=== PATIENT | male | born 2000 | race Caucasian/White ===

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

== ENCOUNTER 2018-01-27 15:58 | Emergency (ER) | payer OTHER ==
[2018-01-27 16:10] VITALS: BP 132/82
--- NOTE | 2018-01-27 16:15 | UC ---
General HPI - HPI Summary HPI Summary: pt is for over a week.c/o worsening sinus pain, pressure and congestion with post nasal drip and a sore throat - History of Current Complaint Chief Complaint: UCGeneralIllness Stated Complaint: HEAD CONGESTION/SORE THROAT Time Seen by Provider: 01/27/18 16:08 Hx Obtained From: Family/Director Of Diagnostic Imaging Onset/Duration: Gradual Onset Timing: Constant Pain Intensity: 4 Associated Signs & Symptoms: Positive: Other - no allergies. Negative: Fever - Allergy/Home Medications Allergies/Adverse Reactions: Allergies Allergy/AdvReac Type Severity Reaction Status Date / Time azithromycin Allergy Rash Verified 12/04/17 09:30 clarithromycin [From Biaxin] Allergy Rash Verified 12/04/17 09:30 ibuprofen Allergy See Comment Verified 01/08/18 08:50 pollen extracts Allergy Sneezing Verified 12/04/17 09:30 prev pack Allergy Mild Vomiting Uncoded 11/07/16 14:25 PMH/Surg Hx/FS Hx/Imm Hx - Additional Past Medical History Additional PMH: ADHD Cardiovascular History: Hypertension GI/ History: Gastroesophageal Reflux Psychological History: Anxiety Other History Of: Negative For: Anticoagulant Therapy - Surgical History Surgical History: Yes Surgery Procedure, Year, and Place: TONSILLECTOMY AND ADENOICECTOMY-[place]; ear tubes bilat,skull zoya from injury; Left Knee surgery 2013 - Family History Known Family History: Positive: Unknown, Cardiac Disease, Hypertension, Diabetes , Other - cancer in many relative. - Social History Occupation: Employed Full-time Alcohol Use: None Substance Use Type: None Smoking Status (MU): Never Smoked Tobacco Household Exposure Type: Cigarettes - Immunization History Vaccination Up to Date: Yes Review of Systems Constitutional: Negative Skin: Negative Eyes: Negative ENT: Sore Throat, Nasal Discharge, Sinus Congestion, Sinus Pain/Tenderness Respiratory: Negative Cardiovascular: Negative Gastrointestinal: Negative Genitourinary: Negative Motor: Negative Neurovascular: Negative Musculoskeletal: Negative Neurological: Negative Psychological: Negative Is Patient Immunocompromised?: No All Other Systems Reviewed And Are Negative: Yes Physical Exam Triage Information Reviewed: Yes Appearance: Well-Appearing Vital Signs: Initial Vital Signs Temp 97.6 F 01/27/18 16:05 Pulse 98 01/27/18 16:05 Resp 18 01/27/18 16:05 BP 132/82 01/27/18 16:05 Pulse Ox 99 01/27/18 16:05 Vital Signs Reviewed: Yes Eyes: Positive: Conjunctiva Clear ENT: Positive: Pharynx normal, Nasal congestion, TMs normal, Sinus tenderness. Negative: Nasal drainage Neck: Positive: Supple, Nontender, No Lymphadenopathy Respiratory: Positive: Lungs clear, Normal breath sounds Cardiovascular: Positive: RRR, No Murmur Abdomen Description: Positive: Nontender, No Organomegaly, Soft Bowel Sounds: Positive: Present Musculoskeletal: Positive: ROM Intact Neurological: Positive: Alert Psychological: Positive: Age Appropriate Behavior Skin Exam: Normal Course/Dx - Differential Dx - Multi-Symptom Provider Diagnoses: sinusitis Discharge - Sign-Out/Discharge Documenting (check all that apply): Patient Departure - Discharge Plan Condition: Stable Disposition: HOME Prescriptions: Amoxicillin/Clavulanate TAB* [Augmentin TAB 875*] 875 mg PO BID #20 tab Patient Education Materials: Sinusitis (ED) Forms: *Work Release Referrals: Chris SIERRA,Greg Atkinson [Primary Care Provider] - 7 Days - Billing Disposition and Condition Condition: STABLE Disposition: Home
== END 2018-01-27 16:24 | disposition home or self-care (01) ==
LOC: UCCORT 15:58
DX: J32.9 Chronic sinusitis, unspecified (principal); I10 Essential (primary) hypertension; K21.9 Gastro-esophageal reflux disease without esophagitis; F90.9 Attention-deficit hyperactivity disorder, unspecified type; F41.9 Anxiety disorder, unspecified; Z88.6 Allergy status to analgesic agent; Z88.1 Allergy status to other antibiotic agents; Z82.49 Family history of ischemic heart disease and other diseases of the circulatory system; Z83.3 Family history of diabetes mellitus; Z80.9 Family history of malignant neoplasm, unspecified
CPT/HCPCS: 99212; G0463

== ENCOUNTER 2018-04-30 08:01 | Emergency (ER) | payer OTHER ==
--- NOTE | 2018-04-30 08:27 | ED ---
Nausea/Vomiting/Diarrhea HPI - HPI Summary HPI Summary: nausea, diarrhea last 24 hours, several bowel movements at home, without blood, without vomiting. did not check temperature at home. Mother also having diarrhea - History of Current Complaint Chief Complaint: UCGeneralIllness Stated Complaint: NAUGSEA Time Seen by Provider: 04/30/18 08:14 Onset/Duration: Sudden Onset Severity Initially: Mild Severity Currently: Mild Pain Intensity: 0 Location: Diffuse Character: Cramping Aggravating Factor(s): Food Alleviating Factor(s): Bowel Movement Nausea/Vomiting Presence: Nauseated Nausea/Vomiting Duration: 0-12 hours Diarrhea Characteristics: Watery - Risk Factors Influenza Risk Factors: Negative Surgical Obstruction Risk Factor(s): Negative - Allergies/Home Medications Allergies/Adverse Reactions: Allergies Allergy/AdvReac Type Severity Reaction Status Date / Time azithromycin Allergy Rash Verified 04/30/18 08:08 clarithromycin [From Biaxin] Allergy Rash Verified 04/30/18 08:08 ibuprofen Allergy See Comment Verified 04/30/18 08:08 pollen extracts Allergy Sneezing Verified 04/30/18 08:08 prev pack Allergy Mild Vomiting Uncoded 04/30/18 08:08 PMH/Surg Hx/FS Hx/Imm Hx Previously Healthy: Yes Endocrine/Hematology History: Denies: Hx Anticoagulant Therapy, Hx Diabetes, Hx Thyroid Disease Cardiovascular History: Reports: Hx Hypertension Denies: Hx Pacemaker/ICD Respiratory History: Reports: Hx Asthma, Other Respiratory Problems/Disorders - Tonsillectomy, adenoids removed tubes in ears Denies: Hx Chronic Obstructive Pulmonary Disease (COPD) GI History: Denies: Hx Ulcer, Other GI Disorders History: Denies: Hx Renal Disease Sensory History: Reports: Hx Contacts or Glasses - WEARS GLASSES Denies: Hx Hearing Aid Opthamlomology History: Reports: Hx Contacts or Glasses - WEARS GLASSES Neurological History: Reports: Other Neuro Impairments/Disorders - Head trauma x 4 yrs, 19 zoya in scalp top of head Denies: Hx Dementia, Hx Seizures Psychiatric History: Reports: Hx Anxiety - ON [place], Hx Depression, Hx Panic Disorder - anxiety,lomzilipram(?) Denies: Hx Substance Abuse - Surgical History Surgery Procedure, Year, and Place: TONSILLECTOMY AND [place]ENOICECTOMY[place]; ear tubes bilat,skull zoya from injury; Left Knee surgery 2014 Hx Anesthesia Reactions: No Infectious Disease History: No Infectious Disease History: Denies: Hx Hepatitis, Hx Human Immunodeficiency Virus (HIV), Traveled Outside the [place] in Last 30 Days - Family History Known Family History: Positive: Unknown, Cardiac Disease, Hypertension, Diabetes , Other - cancer in many relative. - Social History Alcohol Use: None Substance Use Type: Reports: None Smoking Status (MU): Never Smoked Tobacco Review of Systems Constitutional: Negative Eyes: Negative ENT: Negative Cardiovascular: Negative Respiratory: Negative Positive: Diarrhea, Nausea Genitourinary: Negative Musculoskeletal: Negative Skin: Negative Neurological: Negative All Other Systems Reviewed And Are Negative: Yes Physical Exam Triage Information Reviewed: Yes Vital Signs On Initial Exam: Initial Vitals Temp Pulse Resp BP Pulse Ox 36.6 C 90 20 146/84 96 04/30/18 08:11 04/30/18 08:11 04/30/18 08:11 04/30/18 08:11 04/30/18 08:11 Vital Signs Reviewed: Yes Appearance: Positive: Ill-Appearing, Obese Skin: Positive: Warm, Dry, Other - seborrheic dermatitis Head/Face: Positive: Normal Head/Face Inspection Eyes: Positive: Normal ENT: Positive: Normal ENT inspection Neck: Positive: Supple Respiratory/Lung Sounds: Positive: Clear to Auscultation Cardiovascular: Positive: Normal Abdomen Description: Positive: Nontender Bowel Sounds: Positive: Present Diagnostics - Vital Signs Vital Signs Temp Pulse Resp BP Pulse Ox 04/30/18 08:11 36.6 C 90 20 146/84 96 - Laboratory Lab Statement: Any lab studies that have been ordered have been reviewed, and results considered in the medical decision making process. Naus/Vom/Diarrhea Course/Dx - Differential Dx/Diagnosis Provider Diagnoses: gastroenteritis Discharge - Sign-Out/Discharge Documenting (check all that apply): Patient Departure All imaging exams completed and their final reports reviewed: Yes - Discharge Plan Condition: Good Disposition: HOME Patient Education Materials: Gastroenteritis (DC) Referrals: Chris SIERRA,Greg Atkinson [Primary Care Provider] - Additional Instructions: clear liquid diet, wash hands well to avoid transmission of possibly infectious diarrhea, jello juice, broth , soda, until diarrhea resolves - Billing Disposition and Condition Condition: GOOD Disposition: Home
[2018-04-30 08:42] VITALS: BP 137/66
[2018-04-30 10:40] LABS: ABS Basophils 0 10^3/ul (0-0.2); ABS Eosinophils 0.1 10^3/ul (0-0.6); ABS Lymphocytes 1.7 10^3/ul (1.0-4.8); ABS Monocytes 0.4 10^3/ul (0-0.8); ABS Neutrophils 4.9 10^3/ul (1.5-7.7); ABS Nucleated RBC 0.1 10^3/ul; Hematocrit 44 % (42-52); Hemoglobin 15.2 g/dl (14.0-18.0); Mean Corpuscular HGB Conc 35 g/dl (31-36); Mean Corpuscular Hemoglobin 28 pg (27-31); Mean Corpuscular Volume 82 fL (80-94); Mean Platelet Volume 8.5 um3 (7.4-10.4); Nucleated Red Blood Cells % 0.9; Platelet Count 290 10^3/ul (150-450); Red Blood Count 5.39 10^6/ul (4.00-5.40); Red Cell Distribution Width 14 % (10.5-15); White Blood Count 7.1 10^3/ul (3.5-10.8)
== END 2018-04-30 08:51 | disposition home or self-care (01) ==
LOC: UCEAST 08:01
DX: K52.9 Noninfective gastroenteritis and colitis, unspecified (principal); F41.9 Anxiety disorder, unspecified; Z88.6 Allergy status to analgesic agent; Z88.1 Allergy status to other antibiotic agents
CPT/HCPCS: 36415; 80053; 83036; 85025; 99212; G0463

== ENCOUNTER 2019-01-18 08:01 | Emergency (ER) | payer OTHER ==
[2019-01-18 08:12] VITALS: BP 165/85
--- NOTE | 2019-01-18 08:12 | UC ---
Nausea/Vomiting/Diarrhea HPI - HPI Summary HPI Summary: 18 y/o male presents to the urgent care c/o diarrhea, N/V for the past 4 days. Pt reports diarrhea started first w/ 3 episodes daily and w/o any abdominal pain. The next day he developed N/V w/ 1-2 episodes daily. He doesn't recall eating outside and no recent travel. He has been drinking fluids and his appetite hasn't decrease. He also c/o lf left ear pain for the past 2 days w/ also some insect bites in both arms. Pt felt chills last night, but took his temp and was 99.1F. He has taken Tylenol PO to alleviate ear pain. Pt denies fever, ARCHULETA, dizziness, SOB, cough, chest pain, abdominal pain, blood in the stool or vomit, urinary symptoms, or Hx of STD's - History of Current Complaint Stated Complaint: NAUSEA,DIARRHEA Time Seen by Provider: 01/18/19 08:08 Hx Obtained From: Patient Onset/Duration: Gradual Onset, Lasting Days - 4 days, Still Present Timing: Intermittent Episodes Lasting: Severity Initially: Mild Severity Currently: Mild Pain Intensity: 4 - left ear pain Pain Scale Used: 0-10 Numeric Location: Other - No abdominal pain Character: Not Applicable Aggravating Factor(s): Nothing Alleviating Factor(s): OTC Analgesics Vomiting Frequency: Daily - 1-2 episodes daily Nausea/Vomiting Duration: 2-3 days Vomiting Characteristics: Nonbilious Diarrhea Presence: Yes Diarrhea Frequency: Daily - 3 episodes everyday Diarrhea Characteristics: Watery - Risk Factors Influenza Risk Factors: Negative - Allergies/Home Medications Allergies/Adverse Reactions: Allergies Allergy/AdvReac Type Severity Reaction Status Date / Time azithromycin Allergy Rash Verified 04/30/18 08:08 clarithromycin [From Biaxin] Allergy Rash Verified 04/30/18 08:08 ibuprofen Allergy See Comment Verified 04/30/18 08:08 pollen extracts Allergy Sneezing Verified 04/30/18 08:08 prev pack Allergy Mild Vomiting Uncoded 04/30/18 08:08 PMH/Surg Hx/FS Hx/Imm Hx Previously Healthy: Yes Respiratory History: Asthma GI/ History: Gastroesophageal Reflux Psychological History: Depression Other Psychological History: ADHD Other History Of: Negative For: Anticoagulant Therapy - Surgical History Surgical History: Yes Surgery Procedure, Year, and Place: TONSILLECTOMY AND [place]ICECTOMY[place]; ear tubes bilat,skull zoya from injury; Left Knee surgery 2014 - Family History Known Family History: Positive: Cardiac Disease, Hypertension, Diabetes, Other - cancer in many relative. - Social History Occupation: Employed Full-time Lives: With Family Alcohol Use: None Substance Use Type: None Smoking Status (MU): Never Smoked Tobacco Household Exposure Type: Cigarettes - Immunization History Vaccination Up to Date: Yes Review of Systems All Other Systems Reviewed And Are Negative: Yes Constitutional: Positive: Negative Skin: Positive: Rash - insect bites in B/L arms Eyes: Positive: Negative ENT: Positive: Ear Ache - left ear pain Respiratory: Positive: Negative Cardiovascular: Positive: Negative Gastrointestinal: Positive: Vomiting - 2-3 epidosdes every day x 3 days, Diarrhea - 3 episodes every day x 4 days, Nausea Genitourinary: Positive: Negative Motor: Positive: Negative Neurovascular: Positive: Negative Musculoskeletal: Positive: Negative Neurological: Positive: Negative Psychological: Positive: Negative Is Patient Immunocompromised?: No Physical Exam - Summary Physical Exam Summary: Vital Signs Reviewed: Yes General:Patient is a well developed and nourished male who is sitting comfortable in the examining table. Patient is not in any acute respiratory distress. Eyes: Positive: Conjunctiva Clear - PERRLA, EOMI, fundi grossly normal ENT: Positive: Normal ENT inspection, Hearing grossly normal, Left esteranl ear canal w/ erythema and yellowish draiange, LF TM injected w/ erythema. RT external ear canal and TM: WNL. Pharynx normal, Neck: Positive: Supple, Nontender, No Lymphadenopathy Respiratory: Positive: Chest non-tender, Lungs clear, Normal breath sounds, No respiratory distress Cardiovascular: Positive: RRR,S1 and S2 present, No Murmur, Pulses Normal, Brisk Capillary Refill Abdomen Description: Positive: Nontender, Other: - Abd: Flat with no distention. No surface trauma, scars, incisions. hyperactive bowel sounds present in all four quadrants. No tenderness, guarding, rigidity to palpation. No masses palpated, no pulsation in epigastric area. No organomegaly. Negative [place] signs. No periumbilical tenderness. No rebound in the lower quadrants. NT over [place]neys point. Good femoral pulses bilaterally. No hernia noted. No CVAT bilaterally Musculoskeletal: Positive: Strength Intact, ROM Intact, No Edema,FROM in all major joints, no edema, no cyanosis or clubbing. Neuro: Alert and oriented x 3. No acute neurological deficits. Speech is normal. Psychological: WNL Skin: Dry and warm, B/L arms a/ scattered erythematous papules, some w/ yellowish crusting and signs of excoriation, mild tenderness on palpation, no swelling observed. Triage Information Reviewed: Yes Vital Signs: Initial Vital Signs Temp 98.6 F 01/18/19 08:09 Pulse 110 01/18/19 08:09 Resp 17 01/18/19 08:09 BP 165/85 01/18/19 08:09 Pulse Ox 98 01/18/19 08:09 Naus/Vom/Diarrhea Course/Dx - Course Course Of Treatment: 18 y/o male presents to the urgent care c/o diarrhea, N/V for the past 4 days. Pt reports diarrhea started first w/ 3 episodes daily and w/o any abdominal pain. The next day he developed N/V w/ 1-2 episodes daily. He doesn't recall eating outside and no recent travel. He has been drinking fluids and his appetite hasn't decrease. He also c/o lf left ear pain for the past 2 days w/ also some insect bites in both arms. Pt felt chills last night, but took his temp and was 99.1F. He has taken Tylenol PO to alleviate ear pain. Pt denies fever, ARCHULETA, dizziness, SOB, cough, chest pain, abdominal pain, blood in the stool or vomit, urinary symptoms, or Hx of STD's. Hx obtained. Pt is hemodynamically stable, A&OX3, no signs of dehydration. Pt w/ possible gastroenteritis and left otitis media and externa, also B/L arms w/ multiple insect bites w/ some yellowish crusting on examination. Pt given at the clinic Zofran PO by nurse which he states he has taken it before. Pt tolerated well medication and felt better. Pt advised to increase fluid intake, eat soft meals , rest. However if symptoms worsen and she developes abdominal pain develops to go Immediately to the ER for further management. Pt Rx Amoxicillin PO and Cortisporin otic drops as directed below to alleviate ear infection. Also Rx Mupirucin topical cream to alleviate rash. Pt explained D/C instructions. Pt understood and agreed w/ plan of care. Pt left the clinic ambulating, A&OX3 - Differential Dx/Diagnosis Differential Diagnoses - Male: Appendicitis, Gastroenteritis (Viral), Gastroenteritis (Bacterial), Vomiting, Diarrhea, Gastritis, Other - ear infection, insect bites infected Provider Diagnosis: Left otitis externa, Gastroenteritis, Left otitis media, Rash, Elevated BP without diagnosis of hypertension Condition At Discharge: Stable Discharge - Sign-Out/Discharge Documenting (check all that apply): Patient Departure - D/C home All imaging exams completed and their final reports reviewed: No Studies - Discharge Plan Condition: Stable Disposition: HOME Prescriptions: Amoxicillin PO (*) [Amoxicillin 500 MG CAP*] 500 mg PO Q12H #14 cap Mupirocin 2% OINT* [Bactroban 2 % Oint*] 1 applic TOPICAL BID #1 tube Neomyc/Polym/HC 1% OTIC SUSP* [Cortisporin Otic Susp 1%*] 4 drop LEFT EAR TID # 1 btl Patient Education Materials: Ear Infection (ED), Gastroenteritis (ED) Forms: *Work Release Referrals: Chris SIERRA,Greg Atkinson [Primary Care Provider] - 2 Days Additional Instructions: 1- Please increase fluid intake . Drink Pedialyte or Gatorade. Eat soft meals and small portions, rest and avoid strenuous exercise 2-Apply the topical antibiotic in the affected due to possible insect bite which are co-infected 3- Take Amoxicillin PO as directed and Apply Cortisporin otic drops as directed to alleviate ear infection. If no improvement of symptoms please f/u w/ your PCP in 3 days for further management. Take Yogurt w/ probiotics or Culturelle to protect your GI system 4- If you develops fever or abdominal pain w/ recurrent episodes of diarrhea please go to the ER, otherwise f/u with your PCP if diarrhea not resolving in 2- 3 days 5- Your BP is elevated today. please decrease salt in your diet, monitor BP and if it continues to be elevated please f/u with your PCP for further management. - Billing Disposition and Condition Condition: STABLE Disposition: Home
[2019-01-18] MEDS ORDERED: Ondansetron ODT TAB* 4 MG PO ONE (08:33)
== END 2019-01-18 08:55 | disposition home or self-care (01) ==
LOC: UCCORT 08:01
DX: H60.92 Unspecified otitis externa, left ear (principal); K52.9 Noninfective gastroenteritis and colitis, unspecified; H66.92 Otitis media, unspecified, left ear; R21 Rash and other nonspecific skin eruption; R03.0 Elevated blood-pressure reading, without diagnosis of hypertension
CPT/HCPCS: 99212; A9270-GY; G0463

== ENCOUNTER 2019-01-26 08:09 | Emergency (ER) | payer OTHER ==
[2019-01-26 08:38] VITALS: BP 146/74
--- NOTE | 2019-01-26 08:49 | UC ---
Throat Pain/Nasal Julian HPI - HPI Summary HPI Summary: nasal congestion x 4 days sinus pain and pressure , pnd moderate in severity , worse with exertion , better with rest and fluid no cough , no ear pain , no fever, no chills - History of Current Complaint Chief Complaint: UCGeneralIllness Stated Complaint: SINUS PRESSURE Time Seen by Provider: 01/26/19 08:35 Hx Obtained From: Patient Onset/Duration: Gradual Onset, Lasting Days - 4, Still Present Severity: Moderate Pain Intensity: 4 Cough: None Associated Signs & Symptoms: Positive: Sinus Discomfort, Nasal Discharge. Negative: Dysphagia, FB Sensation, Drooling, Wheezing, Hoarseness, Fever, Vomiting, Rash - Allergies/Home Medications Allergies/Adverse Reactions: Allergies Allergy/AdvReac Type Severity Reaction Status Date / Time azithromycin Allergy Rash Verified 01/26/19 08:39 clarithromycin [From Biaxin] Allergy Rash Verified 01/26/19 08:39 ibuprofen Allergy See Comment Verified 01/26/19 08:39 pollen extracts Allergy Sneezing Verified 01/26/19 08:39 prev pack Allergy Mild Vomiting Uncoded 01/26/19 08:39 PMH/Surg Hx/FS Hx/Imm Hx - Additional Past Medical History Additional PMH: anxiety, acid reflux, ADHD Cardiovascular History: Hypertension Respiratory History: Asthma GI/ History: Gastroesophageal Reflux Psychological History: Anxiety Other History Of: Negative For: Anticoagulant Therapy - Surgical History Surgical History: Yes Surgery Procedure, Year, and Place: TONSILLECTOMY AND ADENOICECTOMY-[place]; ear tubes bilat,skull zoya from injury; Left Knee surgery 2013 - Family History Known Family History: Positive: Unknown, Cardiac Disease, Hypertension, Diabetes , Other - cancer in many relative. - Social History Alcohol Use: None Substance Use Type: None Smoking Status (MU): Never Smoked Tobacco Household Exposure Type: Cigarettes - Immunization History Vaccination Up to Date: Yes Review of Systems All Other Systems Reviewed And Are Negative: Yes Constitutional: Positive: Negative Skin: Positive: Negative Eyes: Positive: Negative ENT: Positive: Nasal Discharge, Sinus Congestion, Sinus Pain/Tenderness. Negative: Sore Throat Respiratory: Positive: Negative. Negative: Cough Cardiovascular: Positive: Negative Is Patient Immunocompromised?: No Physical Exam Triage Information Reviewed: Yes Appearance: Well-Appearing, No Pain Distress, Obese Vital Signs: Initial Vital Signs Temp 97.9 F 01/26/19 08:33 Pulse 101 01/26/19 08:33 Resp 16 01/26/19 08:33 BP 146/74 01/26/19 08:33 Pulse Ox 99 01/26/19 08:33 Vital Signs Reviewed: Yes Eye Exam: Normal Eyes: Positive: Conjunctiva Clear ENT: Positive: Normal ENT inspection, Hearing grossly normal, Pharynx normal, Nasal congestion, Nasal drainage, TMs normal. Negative: Pharyngeal erythema, TM bulging, TM dull, TM red, Tonsillar swelling, Tonsillar exudate, Sinus tenderness Neck exam: Normal Neck: Positive: Supple, Nontender, No Lymphadenopathy Respiratory: Positive: Chest non-tender, Lungs clear, Normal breath sounds Cardiovascular: Positive: RRR, No Murmur, Pulses Normal Skin Exam: Normal Throat Pain/Nasal Course/Dx - Differential Dx/Diagnosis Provider Diagnosis: URI (upper respiratory infection) Discharge - Sign-Out/Discharge Documenting (check all that apply): Patient Departure All imaging exams completed and their final reports reviewed: No Studies - Discharge Plan Condition: Stable Disposition: HOME Prescriptions: Fluticasone NASAL SPRAY 50MCG* [Flonase NASAL SPRAY 50MCG*] 2 spray BOTH NARES DAILY #1 btl Patient Education Materials: Upper Respiratory Infection (DC) Forms: *Work Release Referrals: Chris SIERRA,Greg Atkinson [Primary Care Provider] - If Needed - Billing Disposition and Condition Condition: STABLE Disposition: Home
== END 2019-01-26 08:58 | disposition home or self-care (01) ==
LOC: UCCORT 08:09
DX: J06.9 Acute upper respiratory infection, unspecified (principal); Z88.6 Allergy status to analgesic agent; Z88.1 Allergy status to other antibiotic agents
CPT/HCPCS: 99212; G0463

== ENCOUNTER 2019-01-27 08:35 | Emergency (ER) | payer OTHER ==
[2019-01-27 08:42] VITALS: BP 150/88
--- NOTE | 2019-01-27 08:48 | UC ---
Respiratory Complaint HPI - HPI Summary HPI Summary: 18 yo male with one week hx of sinus pressure and pain no fever states his SONG has been bad all summer asthmatic but no wheezing with this - History of Current Complaint Chief Complaint: UCRespiratory Stated Complaint: SINUS PRESSURE Time Seen by Provider: 01/27/19 08:47 Hx Obtained From: Patient Onset/Duration: Gradual Onset, Lasting Days Timing: Constant Severity Initially: Mild Severity Currently: Moderate Pain Intensity: 4 Character: Cough: Nonproductive Aggravating Factors: Nothing Alleviating Factors: Nothing Associated Signs And Symptoms: Positive: URI, Nasal Congestion, Sinus Discomfort - Allergies/Home Medications Allergies/Adverse Reactions: Allergies Allergy/AdvReac Type Severity Reaction Status Date / Time azithromycin Allergy Rash Verified 01/27/19 08:42 clarithromycin [From Biaxin] Allergy Rash Verified 01/27/19 08:42 ibuprofen Allergy See Comment Verified 01/27/19 08:42 pollen extracts Allergy Sneezing Verified 01/27/19 08:42 prev pack Allergy Mild Vomiting Uncoded 01/27/19 08:42 Home Medications: Home Medications Acetaminophen TAB* [Tylenol TAB*] 975 mg PO Q4H PRN 01/27/19 [History Confirmed 01/27/19] PMH/Surg Hx/FS Hx/Imm Hx Previously Healthy: Yes Cardiovascular History: Hypertension Respiratory History: Asthma Other History Of: Negative For: Anticoagulant Therapy - Surgical History Surgical History: Yes Surgery Procedure, Year, and Place: TONSILLECTOMY AND ADENOICECTOMY[place]; ear tubes bilat,skull zoya from injury; Left Knee surgery 2013 - Family History Known Family History: Positive: Cardiac Disease, Hypertension, Diabetes, Other - cancer in many relative. - Social History Alcohol Use: None Substance Use Type: None Smoking Status (MU): Never Smoked Tobacco Household Exposure Type: Cigarettes - Immunization History Vaccination Up to Date: Yes Review of Systems All Other Systems Reviewed And Are Negative: Yes Constitutional: Positive: Negative Skin: Positive: Negative Eyes: Positive: Negative ENT: Positive: Nasal Discharge, Sinus Congestion, Sinus Pain/Tenderness Respiratory: Positive: Cough Cardiovascular: Positive: Negative Gastrointestinal: Positive: Negative Genitourinary: Positive: Negative Motor: Positive: Negative Neurovascular: Positive: Negative Musculoskeletal: Positive: Negative Neurological: Positive: Negative Psychological: Positive: Negative Physical Exam Triage Information Reviewed: Yes Appearance: Well-Appearing, No Pain Distress, Well-Nourished Vital Signs: Initial Vital Signs Temp 97.5 F 01/27/19 08:38 Pulse 109 01/27/19 08:38 Resp 16 01/27/19 08:38 BP 150/88 01/27/19 08:38 Pulse Ox 98 01/27/19 08:38 Vital Signs Reviewed: Yes Eyes: Positive: Conjunctiva Clear ENT: Positive: Hearing grossly normal, Nasal congestion, Nasal drainage, TMs normal, Sinus tenderness, Uvula midline. Negative: Tonsillar swelling, Tonsillar exudate, Trismus, Muffled voice, Hoarse voice, Dental tenderness Dental Exam: Normal Neck: Positive: Supple, Nontender, No Lymphadenopathy Respiratory: Positive: Lungs clear, Normal breath sounds, No respiratory distress, No accessory muscle use Cardiovascular: Positive: RRR Musculoskeletal: Positive: ROM Intact, No Edema Neurological: Positive: Alert Psychological Exam: Normal Skin Exam: Normal Respiratory Course/Dx - Differential Dx/Diagnosis Provider Diagnosis: Acute sinusitis Discharge - Sign-Out/Discharge Documenting (check all that apply): Patient Departure All imaging exams completed and their final reports reviewed: No Studies - Discharge Plan Condition: Stable Disposition: HOME Prescriptions: Amoxicillin PO (*) [Amoxicillin 875 MG (*)] 875 mg PO BID #14 tab Forms: *Work Release Referrals: Chris SIERRA,Greg Atkinson [Primary Care Provider] - 1 Week (if not better) Additional Instructions: use saline nasal spray -2 sprays each nostril twice daily f use you flonase about 5 minutes later twcie daily for the next two weeks then decrease to once daily - Billing Disposition and Condition Condition: STABLE Disposition: Home
== END 2019-01-27 09:05 | disposition home or self-care (01) ==
LOC: UCEAST 08:35
DX: J01.90 Acute sinusitis, unspecified (principal); I10 Essential (primary) hypertension; J45.909 Unspecified asthma, uncomplicated
CPT/HCPCS: 99212; G0463

== ENCOUNTER 2019-01-29 08:09 | Emergency (ER) | payer OTHER ==
[2019-01-29 08:32] VITALS: BP 150/84
--- NOTE | 2019-01-29 09:02 | UC ---
Nausea/Vomiting/Diarrhea HPI - HPI Summary HPI Summary: PATIENT HERE COMPLAINING OF NAUSEA AND VOMITING 2-3 TIMES DAILY FOR A WEEK. HAS ALSO HAD SOME LOOSE STOOLS BUT NOT WATERY. NO FEVER. IS REQUESTING A WORK NOTE. THIS IS PATIENT'S FOURTH VISIT IN 12 DAYS FOR VARIOUS COMPLAINTS. HE IS ON A THE THIRD DAY OF HIS SECOND ROUND OF AMOXICILLIN FOR SINUSITIS. APPETITE GOOD. STILL EATING AND DRINKING NORMALLY. - History of Current Complaint Chief Complaint: UCGeneralIllness Stated Complaint: VOMTING,DIARRHEA Time Seen by Provider: 01/29/19 08:43 Hx Obtained From: Patient Onset/Duration: Gradual Onset, Lasting Days, Still Present Timing: Constant Severity Initially: Moderate Severity Currently: Moderate Pain Intensity: 0 Pain Scale Used: 0-10 Numeric Character: Cramping Aggravating Factor(s): Nothing Alleviating Factor(s): Nothing Nausea/Vomiting Presence: Nauseated, Vomiting - Allergies/Home Medications Allergies/Adverse Reactions: Allergies Allergy/AdvReac Type Severity Reaction Status Date / Time azithromycin Allergy Rash Verified 01/29/19 08:26 clarithromycin [From Biaxin] Allergy Rash Verified 01/29/19 08:26 ibuprofen Allergy See Comment Verified 01/29/19 08:26 pollen extracts Allergy Sneezing Verified 01/29/19 08:26 prev pack Allergy Mild Vomiting Uncoded 01/29/19 08:26 Home Medications: Home Medications Amoxicillin PO (*) [Amoxicillin 875 MG (*)] 875 mg PO BID 01/29/19 [History Confirmed 01/29/19] PMH/Surg Hx/FS Hx/Imm Hx - Additional Past Medical History Additional PMH: ADHD Cardiovascular History: Hypertension Respiratory History: Asthma GI/ History: Gastroesophageal Reflux Psychological History: Anxiety Other History Of: Negative For: Anticoagulant Therapy - Surgical History Surgical History: Yes Surgery Procedure, Year, and Place: TONSILLECTOMY AND [place]OMY[place]; ear tubes bilat,skull zoya from injury; Left Knee surgery 2013 - Family History Known Family History: Positive: Unknown, Cardiac Disease, Hypertension, Diabetes , Other - cancer in many relative. - Social History Alcohol Use: None Substance Use Type: None Smoking Status (MU): Never Smoked Tobacco Household Exposure Type: Cigarettes - Immunization History Vaccination Up to Date: Yes Review of Systems All Other Systems Reviewed And Are Negative: Yes Constitutional: Positive: Negative Respiratory: Positive: Negative Cardiovascular: Positive: Negative Gastrointestinal: Positive: Abdominal Pain, Vomiting, Diarrhea, Nausea Genitourinary: Positive: Negative Physical Exam Triage Information Reviewed: Yes Appearance: Well-Appearing, No Pain Distress, Well-Nourished Vital Signs: Initial Vital Signs Temp 97.8 F 01/29/19 08:27 Pulse 108 01/29/19 08:27 Resp 17 01/29/19 08:27 BP 150/84 01/29/19 08:27 Pulse Ox 98 01/29/19 08:27 Vital Signs Reviewed: Yes Eyes: Positive: Conjunctiva Clear ENT: Positive: Hearing grossly normal Neck: Positive: Supple Respiratory Exam: Normal Cardiovascular Exam: Normal Abdomen Description: Positive: Nontender, Soft. Negative: CVA Tenderness (R), CVA Tenderness (L), Distended, Guarding Bowel Sounds: Positive: Present Naus/Vom/Diarrhea Course/Dx - Course Course Of Treatment: PATIENT REPORTS ABOUT 1 WEEK OF PERSISTENT NAUSEA/VOMITING AND LOOSE STOOLS. IS CURRENTLY ON DAY 3 OF HIS SECOND ROUND IN 12 DAYS OF AMOXICILLIN FOR SINUSITIS. THIS IS PATIENT'S FOURTH VISIT IN 12 DAYS FOR VARIOUS MEDICAL COMPLAINTS. HE HAS RECEIVED A WORK NOTE EACH TIME. I DISCUSSED AT LENGTH WITH PATIENT THE IMPORTANCE OF PRIMARY CARE FOLLOW-UP IF HE IS FEELING SO UNWELL THAT HE NEEDS 4 URGENT CARE VISITS IN 12 DAYS. I ALSO VOICED CONCERN ABOUT HIS MULTIPLE RECENT ILLNESSES AND THAT IF HE IS GETTING SICK THIS FREQUENTLY HE MIGHT BENEFIT FROM EVALUATION FOR OTHER UNDERLYING CAUSES OF ILLNESS. - Differential Dx/Diagnosis Provider Diagnosis: Nausea & vomiting Condition At Discharge: Stable Discharge - Sign-Out/Discharge Documenting (check all that apply): Patient Departure All imaging exams completed and their final reports reviewed: No Studies - Discharge Plan Condition: Stable Disposition: HOME Prescriptions: Ondansetron ODT TAB* [Zofran Odt TAB*] 4 mg PO Q6H PRN #20 tab.odt PRN Reason: Nausea/Vomiting Patient Education Materials: Acute Nausea and Vomiting (ED) Forms: *Work Release Referrals: Greg Perez MD [Primary Care Provider] - 1 Week Additional Instructions: GASTROENTERITIS: You have gastroenteritis ("intestinal flu"). This disease is usually caused by a virus. There is no specific treatment. The disease will end by itself. For now, the main danger is dehydration. Give clear liquids. Examples include Pedialyte, Gatorade, clear broth, juices, flat sodas, and jello water. Medications may be prescribed by the physician for special cases. Once tolerated, the clear liquid diet may be supplemented with rice, cereal, toast, applesauce, or bananas. GO TO [facility] [place] WITHOUT FAIL if vomiting increases or blood appears in the bowel movement or vomitus; if you fail to improve, or if signs of dehydration occur (tongue and mouth become dry, lethargy). ENSURE ADEQUATE HYDRATION. CLEAR LIQUIDS, BLAND DIET. AVOID CAFFEINE, DAIRY, GREASY, SPICY FOODS. ONCE YOU ARE TOLERATING CLEAR LIQUIDS YOU CAN ADVANCE TO SIMPLE, BLAND FOODS. GIVEN YOUR RECENT MULTIPLE ILLNESSES I RECOMMEND YOU FOLLOW-UP WITH YOUR PCP FOR FURTHER EVALUATION. - Billing Disposition and Condition Condition: STABLE Disposition: Home
== END 2019-01-29 09:11 | disposition home or self-care (01) ==
LOC: UCCORT 08:09
DX: R11.2 Nausea with vomiting, unspecified (principal); J32.9 Chronic sinusitis, unspecified; I10 Essential (primary) hypertension
CPT/HCPCS: 99212; G0463